=== PATIENT | male | born 1980 | race Caucasian/White ===

== ENCOUNTER 2023-04-21 07:57 | Emergency (ER) | payer OTHER ==
[~2023-04-21] VITALS: Ht 180.3 cm; Wt 75.0 kg
[~2023-04-21 07:57] MED LIST: NOCURR
[2023-04-21 08:03] VITALS: BP 128/83; PULSE 93; RESP 18; TEMP 98.8
[2023-04-21] MEDS ORDERED: VALA100026 PO (08:39)
[2023-04-21] MEDS ORDERED: ValACYclovir HCL 500 MG TABLET PO ONE (08:45)
[2023-04-22] MEDS ORDERED: ACET-3385 PO (09:58)
[2023-04-22] MEDS ORDERED: IBUP-1492 PO (09:58)
== END 2023-04-21 08:51 | disposition home or self-care (01) ==
LOC: EMS 08:14
DX: B02.9 Zoster without complications (principal); F17.210 Nicotine dependence, cigarettes, uncomplicated
CPT/HCPCS: 99283

== ENCOUNTER 2023-04-22 09:35 | Emergency (ER) | payer OTHER ==
[~2023-04-22] VITALS: Ht 180.3 cm; Wt 75.0 kg
[~2023-04-22 09:35] MED LIST changes: +VALA100026 PO
[2023-04-22 09:40] VITALS: BP 111/76; PULSE 88; RESP 18; TEMP 98.3
[2023-04-22] MEDS ORDERED: IBUP-1492 PO (09:58)
[2023-04-22] MEDS ORDERED: ACET-3385 PO (09:58)
[2023-04-22] MEDS ORDERED: KETOROLAC TROMETHAMINE 30 MG/ML VIAL IM ONE (10:00)
== END 2023-04-22 10:03 | disposition home or self-care (01) ==
LOC: EMS 09:35
DX: B02.9 Zoster without complications (principal); F17.210 Nicotine dependence, cigarettes, uncomplicated
CPT/HCPCS: 99283; 96372; J1885